=== PATIENT | male | born 1955 | race Caucasian/White ===

== ENCOUNTER 2016-09-04 15:30 | Emergency (ER) | payer BC, MEDICARE, OTHER ==
[2016-09-04 15:58] VITALS: BP 144/69
--- NOTE | 2016-09-04 17:01 | UC ---
Headache HPI - HPI Summary HPI Summary: eyes are red and sore with purulent drainage also has had fatigue and a headache for 4 days--had a fall and hit his head 5 days ago (on plavix) - History Of Current Complaint Chief Complaint: UCEye Stated Complaint: EYE COMPLAINT Time Seen by Provider: 09/04/16 16:53 Hx Obtained From: Patient Onset/Duration: Gradual Onset, Lasting Days - 4, Still Present Onset Of Symptoms: Gradual Initially Headache Was: Moderate Currently Pain Is: Moderate Timing: Constant Character: Throbbing Location of Headache: Diffuse Aggravating Factor: Nothing Allevating Factors: Nothing Associated Signs And Symptoms: Positive: Vomiting, Sinus Pressure - Allergies/Home Medications Allergies/Adverse Reactions: Allergies Allergy/AdvReac Type Severity Reaction Status Date / Time Heparin Allergy Mild Unknown Verified 09/04/16 15:58 Reaction Details Penicillins Allergy Unknown Verified 09/04/16 15:59 Reaction Details Piperacillin [From Zosyn] Allergy Unknown Verified 09/04/16 15:58 Reaction Details Tazobactam [From Zosyn] Allergy Unknown Verified 09/04/16 15:58 Reaction Details Home Medications: Home Medications Furosemide TAB* [Lasix TAB*] 20 mg PO WEEKLY 09/04/16 [History Confirmed ] PMH/Surg Hx/FS Hx/Imm Hx Previously Healthy: No Endocrine History Of: Reports: Diabetes Cardiovascular History Of: Reports: Cardiac Disorders - [place] one month ago has 7 stents Denies: Hypertension Respiratory History Of: Reports: COPD - Surgical History Surgical History: Yes Surgery Procedure, Year, and Place: bka right leg. ileostomy. bypass surgery 2013 - Family History Family History: no cardio vascular issues reported in family lineage - Social History Occupation: Disabled Lives: With Family Alcohol Use: None Substance Use Type: None Smoking Status (MU): Heavy Every Day Tobacco Smoker Type: Cigarettes - Immunization History Most Recent Influenza Vaccination: 2013 Most Recent Pneumonia Vaccination: 2013 Review of Systems Constitutional: Fatigue Skin: Negative Eyes: Drainage, Eye Redness ENT: Nasal Discharge Respiratory: Negative Cardiovascular: Negative Gastrointestinal: Negative Genitourinary: Negative Motor: Negative Neurovascular: Negative Musculoskeletal: Negative Neurological: Headache Psychological: Negative All Other Systems Reviewed And Are Negative: Yes Physical Exam Triage Information Reviewed: Yes Appearance: Well-Nourished, Ill-Appearing - chronic, Pain Distress - mild Vital Signs: Initial Vital Signs Temp 97.7 F 09/04/16 15:53 Pulse 65 09/04/16 15:53 Resp 16 09/04/16 15:53 BP 144/69 09/04/16 15:53 Pulse Ox 99 09/04/16 15:53 Vital Signs Reviewed: Yes Eye Exam: Normal Eyes: Positive: Conjunctiva Clear ENT Exam: Normal ENT: Positive: Normal ENT inspection, Hearing grossly normal, Pharynx normal, Nasal congestion, Nasal drainage, TMs normal. Negative: Tonsillar swelling, Tonsillar exudate, Trismus, Muffled/hoarse voice Neck exam: Normal Neck: Positive: Supple, Nontender, No Lymphadenopathy Respiratory Exam: Normal Respiratory: Positive: Chest non-tender, Lungs clear, Normal breath sounds, No respiratory distress, No accessory muscle use, Respiratory distress Cardiovascular Exam: Normal Cardiovascular: Positive: RRR, No Murmur, Pulses Normal, Brisk Capillary Refill Abdominal Exam: Normal Abdomen Description: Positive: Nontender, No Organomegaly, Soft Bowel Sounds: Positive: Present Musculoskeletal Exam: Normal Musculoskeletal: Positive: Strength Intact, ROM Intact, No Edema Neurological Exam: Normal Neurological: Positive: Alert Psychological Exam: Normal Skin Exam: Normal Diagnostics - Laboratory Diagnostic Studies Completed/Ordered: Ct-acute sinuisitis, bleeding in skull Headache Course/Dx - Course Course Of Treatment: zithromax, flonase, polytrim eye drops, follow with pcp on friday re-check prn - Differential Dx/Diagnosis Differential Diagnosis/HQI/PQRI: Epidural Hematoma, Subdural Hematoma, Migraine , Sinus Headache, Subarachnoid Hemorrhage, Viral Syndrome Provider Diagnoses: Sinus Headache Discharge - Discharge Plan Condition: Stable Disposition: HOME Prescriptions: Azithromycin TAB* [Zithromax TAB (Z-ANGELO)*] 0 mg PO .Z-ANGELO INSTRUCTIONS #6 tab Fluticasone NASAL SPRAY 50MCG* [Flonase NASAL SPRAY 50MCG*] 2 spray BOTH NARES DAILY #1 btl Polymyx/Trimethoprim OPTH* [Polytrim OPHTH*] 1 drop BOTH EYES Q3H #1 btl Patient Education Materials: Sinusitis (ED), How to Use Eye Drops (ED), Head Injury (ED), How to Use Nasal [place] (ED) Referrals: Jazz Barrow MD [Primary Care Provider] - 09/06/16
--- NOTE | 2016-09-04 17:43 | RAD ---
Indication: Worsening headache following hitting head 4 days ago. On Plavix. Comparison: December 11, 2007 Technique: Noncontrast CT vertex of skull through foramen magnum. Report: Moderately severe prominence of the cerebral sulci worse on the LEFT than the RIGHT with progression compared with the 2008 exam. Unremarkable ventricles and basal cisterns. Negative for almanza matter white matter obscuration, intra or extra-axial hemorrhage, or mass effect. Unremarkable orbital contents. No suspicious lesion of the calvarium or skull base. Mucosal thickening at the maxillary sinuses with small fluid levels and gas bubbles bilaterally. Clear mastoid air spaces. IMPRESSION: 1. Progression of atrophy compared with the 2008 exam. 2. No evidence for traumatic brain injury or acute intracranial process. 3. Maxillary sinus mucosal thickening with small fluid levels and gas bubbles bilaterally; correlate for acute sinusitis.
== END 2016-09-04 18:05 | disposition home or self-care (01) ==
LOC: UCCORT 15:30
DX: R51 Headache (principal); J34.89 Other specified disorders of nose and nasal sinuses; G31.9 Degenerative disease of nervous system, unspecified; Z88.1 Allergy status to other antibiotic agents; Z88.0 Allergy status to penicillin; Z88.8 Allergy status to other drugs, medicaments and biological substances; E11.9 Type 2 diabetes mellitus without complications; I25.2 Old myocardial infarction; Z95.5 Presence of coronary angioplasty implant and graft; J44.9 Chronic obstructive pulmonary disease, unspecified; Z95.1 Presence of aortocoronary bypass graft; F17.210 Nicotine dependence, cigarettes, uncomplicated
CPT/HCPCS: 70450; 99212; G0463